=== PATIENT | male | born 1960 | race Caucasian/White ===

== ENCOUNTER → 2024-07-22 15:00 | Outpatient (REF) | payer OTHER, SELFPAY | LOC: MRI 3T 15:00 | PROVIDERS: ATTENDING PHYSICIAN Specialist; FAMILY PHYSICIAN Family Medicine | DX: C61 Malignant neoplasm of prostate (principal) | CPT/HCPCS: 72197; A9575 ==

== ENCOUNTER 2025-03-21 06:40 | Outpatient (RCR) | payer OTHER, SELFPAY | END 2025-03-21 23:59 | disposition home or self-care (01) | LOC: RPT 06:40 | PROVIDERS: ATTENDING PHYSICIAN Specialist; FAMILY PHYSICIAN Family Medicine | DX: D07.5 Carcinoma in situ of prostate (principal); Z73.6 Limitation of activities due to disability | CPT/HCPCS: 97161; 97530 ==

== ENCOUNTER 2025-04-11 07:01 | Inpatient (IN) | payer OTHER, MEDICARE, SELFPAY ==
[2025-04-07 09:53] LABS: Hematocrit 42.8 % (39.0-52.0); Hemoglobin 14.0 g/dL (13.0-18.0); Mean Corp Hgb Conc. 32.7 g/dL (33.0-37.0); Mean Corpuscular Volume 94.3 fL (80.0-94.0); Nucleated Red Blood Cells % 0 % (-); Platelet Count 206 10^3/uL (130-400); Red Cell Dist. Width 13.0 % (11.5-14.5)
[2025-04-07 10:22] LABS: Blood Urea Nitrogen 24 mg/dl (9-20); Calcium 8.9 mg/dl (8.4-10.2); Carbon Dioxide 32 mmol/L (22-30); Chloride 101 mmol/L (98-107); Glucose 84 mg/dl (70-99); Potassium 4.2 mmol/L (3.5-5.1); Sodium 136 mmol/L (135-145); eGFR > 60.00
[2025-04-11] VITALS (21 sets, daily range): BP systolic 109–132; BP diastolic 63–86; BMI 28.4
[2025-04-11] MEDS: EMEND 40 MG PO (07:16)
[2025-04-11] MEDS: TRANSDERM-SCOP 1 PATCH TRANSDERM (07:16)
[2025-04-11] MEDS: NORMOSOL-R/PLASMALYTE-A 1000 IV ×3 (07:16→23:02)
[2025-04-11] MEDS: NEBCIN 480 MG/100 ML ENEMA 1 BOTTLE RECTAL (07:23)
--- NOTE | 2025-04-11 09:06 | W.IMMPOSTOP ---
Surgical Immed Post Op Note
-
Primary Surgeon: Shannon
Assisting Surgeon: Carrillo
Pre-op Diagnosis: prostate cancer
Post-op Diagnosis: same
Procedure Performed: radical perineal prostatectomy
Anesthesia Type: GET
Specimen / Cultures: prostate; bladder neck and urethral margins
Estimated Blood Loss: 30 ml
Complications: None
[2025-04-11 09:58] LABS: Hematocrit 40.3 % (39.0-52.0); Hemoglobin 13.3 g/dL (13.0-18.0)
[2025-04-11] MEDS: LEVAQUIN 100 IV (10:04)
[2025-04-11 10:05] LABS: Blood Urea Nitrogen 20 mg/dl (9-20); Calcium 8.4 mg/dl (8.4-10.2); Carbon Dioxide 28 mmol/L (22-30); Chloride 103 mmol/L (98-107); Estimated Creatinine Clearance 94 ml/min; Glucose 112 mg/dl (70-99); Potassium 4.0 mmol/L (3.5-5.1); Sodium 135 mmol/L (135-145); eGFR > 60.00
[2025-04-11] MEDS: ZOFRAN 4 MG IV ×2 (10:07→15:25)
[2025-04-11] MEDS: COMPAZINE 5 MG IV (11:04)
--- NOTE | 2025-04-11 14:00 | PTCARENOTE ---
Received patient from PACU. Patient complaining of fullness/the sensation that his pearl isn't properly draining. Hand irrigated per order, no resistance/clear yellow urine. Bladder scanned to verify 0mL in bladder.
[2025-04-11] MEDS: COLACE PO (15:24)
[2025-04-11] MEDS: TORADOL 15 MG IV ×2 (15:24→20:00)
[2025-04-11] MEDS: COLACE 100 MG PO (15:24)
[2025-04-11] MEDS: DETROL LA 4 MG PO (15:25)
[2025-04-11] MEDS: POLYSPORIN/DOUBLE ANTIBIOTIC 1 APPLIC TOPICAL (20:00)
[2025-04-11] MEDS: MELATONIN 5 MG PO (21:45)
[2025-04-12] MEDS: TORADOL 15 MG IV ×4 (01:55→20:09)
[2025-04-12 03:10] VITALS: BP 124/64
[2025-04-12] MEDS: REMOVE SCOPOLAMINE PATCH 1 PATCH REMOVE (06:10)
--- NOTE | 2025-04-12 06:16 | PTCARENOTE ---
pts vicky drain has come out it is longer than when pt was rec'vd on unit I reinforced drsg x1 last night mod amount of blood and this morning I changed the dressings aprox 5:30a for mod amount of blood and the designing's had dislodged soon after
pt called 6:15a saying he felt something on his thigh and its the drain , examination supervisor urologist made aware.
[2025-04-12 07:20] VITALS: BP 111/73
[2025-04-12 08:27] LABS: Hematocrit 38.1 % (39.0-52.0); Hemoglobin 13.2 g/dL (13.0-18.0); Mean Corp Hgb Conc. 34.6 g/dL (33.0-37.0); Mean Corpuscular Volume 89.9 fL (80.0-94.0); Platelet Count 229 10^3/uL (130-400); Red Cell Dist. Width 12.8 % (11.5-14.5)
[2025-04-12] MEDS: LEVAQUIN 100 IV (08:37)
[2025-04-12] MEDS: PROTONIX 40 MG PO (08:38)
[2025-04-12] MEDS: COLACE 100 MG PO ×3 (08:38→17:03)
[2025-04-12] MEDS: POLYSPORIN/DOUBLE ANTIBIOTIC 1 APPLIC TOPICAL ×2 (08:38→20:07)
[2025-04-12] MEDS: THERAGRAN 1 TABLET PO (08:38)
[2025-04-12] MEDS: LIPITOR 20 MG PO (08:38)
[2025-04-12 08:43] LABS: Blood Urea Nitrogen 19 mg/dl (9-20); Calcium 8.8 mg/dl (8.4-10.2); Carbon Dioxide 27 mmol/L (22-30); Chloride 99 mmol/L (98-107); Estimated Creatinine Clearance 83 ml/min; Glucose 93 mg/dl (70-99); Potassium 4.6 mmol/L (3.5-5.1); Sodium 133 mmol/L (135-145); eGFR > 60.00
--- NOTE | 2025-04-12 09:36 | W.PN.SURGUPD ---
Surgical Update
Surgical Update
1 day s/p radical perineal prostatectomy
Labs OK
Tolerating diet
Ambulating
Driggs drain removed
Incision clean/dry
Urine clear
---
Anticipate discharge home in AM 04/13/25
[2025-04-12] MEDS: NORMOSOL-R/PLASMALYTE-A 1000 IV (10:11)
--- NOTE | 2025-04-12 10:24 | CM ---
Patient seen bedside w/ son, initial assessment completed. Radical perineal prostatectomy performed.
Patient resides alone in a [address] apartment, 2 flights of stairs. Independent in all areas. Works. No DME/SNF/HC hx. OP PT recently.
PCP: Aureliano Keller
Pharmacy: [facility]
CM consulted for for pearl and wound care. Discussed w/ patient, agreeable to [facility]. TT to [facility] liaison to make aware
[facility]

Plan: Home w/ [facility]
[2025-04-12 11:10] VITALS: BP 128/73
--- NOTE | 2025-04-12 12:38 | VNURNOTE ---
Home Health Liaison met with patient and son at bedside to discuss [facility] nurse/therapy, visits, schedule and homebound status. Patient is agreeable and understands that visits at home will be 2-3 x per week to assess and teach medical and pearl
management.
Patient is aware that [facility] will contact them for start of care within a few days after discharge from . Provided contact number for [facility].
PM [facility] referral completed in [facility].
[2025-04-12 15:05] VITALS: BP 125/73
[2025-04-12] MEDS: NORMOSOL-R/PLASMALYTE-A IV (20:22)
[2025-04-12] MEDS: MELATONIN 5 MG PO (21:13)
[2025-04-12 23:06] VITALS: BP 131/70
[2025-04-13 07:15] VITALS: BP 102/71
[2025-04-13] MEDS: LIPITOR 20 MG PO (08:07)
[2025-04-13] MEDS: COLACE 100 MG PO ×2 (08:07→12:33)
[2025-04-13] MEDS: POLYSPORIN/DOUBLE ANTIBIOTIC 1 APPLIC TOPICAL (08:07)
[2025-04-13] MEDS: PROTONIX 40 MG PO (08:07)
[2025-04-13] MEDS: THERAGRAN 1 TABLET PO (08:07)
[2025-04-13] MEDS: LEVAQUIN 100 IV (08:08)
[2025-04-13] MEDS: TYLENOL 650 MG PO (08:11)
[2025-04-13 11:37] VITALS: BP 121/73
--- NOTE | 2025-04-13 12:06 | CM ---
Addendum entered by Sabine Nogueira 04/13/25 12:07:
Patient scheduled for discharge today; [facility] liaison notified and acknowledged tiger text
Original Note:
Met with patient to discuss discharge plan'
Patient reported that a friend will provide transport home
Plan: Discharge to home with [facility]
== END 2025-04-13 13:35 | disposition home health service (06) | DRG 708 ==
LOC: 2 SOUTH 07:01
PROVIDERS: ADMITTING PHYSICIAN Specialist; FAMILY PHYSICIAN Family Medicine
PROC: 0VT00ZZ Resection of Prostate, Open Approach (ICD-10-PCS; 2025-04-11)
PROC: 0VB30ZZ Excision of Bilateral Seminal Vesicles, Open Approach (ICD-10-PCS; 2025-04-11)
PROC: 0TQC0ZZ Repair Bladder Neck, Open Approach (ICD-10-PCS; 2025-04-11)
DX: C61 Malignant neoplasm of prostate (principal)
CPT/HCPCS: 36415; 80048; 85014; 85018; 85025; 85027; 86850; 86900; 86901; 88305; 88309; 88331; 93005; A4648